=== PATIENT | female | born 1980 | race Two or more races ===

== ENCOUNTER → 2016-11-07 | Outpatient (CLI) | payer MEDICAID ==
--- NOTE | 2016-11-07 16:12 | RADIOLOGY REPORT (SQ) ---
EXAM DESCRIPTION: U/S [id number] TRNABD 1GES W/ODOP COMPLETED DATE/TIME: 11/07/2016 2:54 pm REASON FOR STUDY: ENCOUNTER FOR SUPERVISION OF DAVID RNORMAL , 1ST TRIMESTER (Z34.81) Z34.81 ENCOUNTER FOR SUPRVSN OF NORMAL , FIRST TRIM COMPARISON: none TECHNIQUE: Transabdominal static and realtime grayscale images acquired of the pelvis. Additional se lected spectral and color Doppler images recorded. All images stored on PACs. bHCG: Not available LIMITATIONS: none FINDINGS: Twin Intra-uterine gestation TYPE OF TWIN: Two gestation sacs. TWIN A: EGA: 12 weeks 4 days ZOFIA: 05/18/2017 FHR: 158 bpm SUBCHORIONIC BLEED: No SIZE OF BLEED: Not applicable. TWIN B: EGA: 12 weeks 3 days ZOFIA: 05/19/2017 FHR: 106 bpm SUBCHORIONIC BLEED: No SIZE OF BLEED: Not applicable. UTERUS: No masses. No anomalies. CERVICAL LENGTH: 3.9 cm Closed. RIGHT ADNEXA: Right ovary was not visualized. LEFT ADNEXA: Normal ovary with normal vascular flow. FREE FLUID: None. OTHER: No other significant finding. IMPRESSION: LIVING TWIN INTRAUTERINE TWIN A EGA: 12 weeks 4 days TWIN B EGA: 12 weeks 3 days Trimester of : First - 0 to 13 weeks. TECHNICAL DOCUMENTATION: JOB ID: [id number] [employer]- All Rights Reserved
== END ==
LOC: RAD 14:09
PROVIDERS: ATTEND Nurse Practitioner Women's Health
DX: Z34.81 Encounter for supervision of other normal pregnancy, first trimester (principal)
CPT/HCPCS: 76801

== ENCOUNTER 2017-04-06 02:37 | Inpatient (IN) | payer MEDICAID ==
--- NOTE | 2017-04-06 02:52 | Non Stress Test Report ---
Non Stress Test Datetime Report Generated by CPN: 04/06/2017 02:52 DEMOGRAPHIC EGA NST: 33.2 INDICATION Indication for Study: Ordered by Provider MONITORING Monitor Explained: Monitor Explained; Test Explained; Patient Verbalized Understanding Time on Monitor: 04/01/2017 21:50 Time off Monitor: 04/01/2017 23:23 NST Duration: 93 NST INTERVENTIONS NST Interventions: PO Hydration Physician Notified NST: Dr. Chandrakant BABY A: [id number] BABY A Movement : Present Contraction Frequency : 3-7 FHR Baseline : 125 Accelerations : 15X15 Decelerations : None Variability : Moderate 6-25bpm NST Review: Meets Criteria for Reactive NST NST Review and Verified By : HUSSEIN Anders Results: Reactive BABY B Movement: Present FHR Baseline: 140 Accelerations: 15X15 Decelerations: None Variability: Moderate 6-25bpm NST Review: Meets Criteria for Reactive NST NST Reviewed And Verified By: Waldo Power, RNC NST Results: Reactive NST REPORT Report Trigger: Send Report
[2017-04-06 03:34] LABS: APPEARANCE,URINE CLOUDY; BILIRUBIN,URINE NEGATIVE (NEGATIVE); GLUCOSE, URINE NEGATIVE (NEGATIVE); KETONES,URINE NEGATIVE (NEGATIVE); LEUKOCYTE ESTERASE,URINE NEGATIVE (NEGATIVE); NITRITE,URINE NEGATIVE (NEGATIVE); PROTEIN,URINE 100 mg/dL (NEGATIVE); URINE SPECIFIC GRAVITY 1.015; UROBILINOGEN,URINE NEGATIVE mg/dL (<2.0)
[2017-04-06 03:52] LABS: URINE BARBITURATES SCREEN NEGATIVE; URINE OPIATES LOW NEGATIVE; URINE PHENCYCLIDINE SCREEN NEGATIVE
[2017-04-06 04:04] LABS: URINE METHADONE SCREEN NEGATIVE
[2017-04-06] MEDS ORDERED: RINGERS SOLUTION,LACTATED 1,000 ML IV PRN (05:55)
[2017-04-06] MEDS ORDERED: RINGERS SOLUTION,LACTATED 1,000 ML IV ONE (05:57)
[2017-04-06 06:38] LABS: ABSOLUTE EOSINOPHILS # (AUTO) 0.1 10^3/uL (0.0-0.6); ABSOLUTE LYMPHOCYTES (AUTO) 1.4 10^3/uL (0.5-4.7); ABSOLUTE MONOCYTES (AUTO) 0.5 10^3/uL (0.1-1.4); ABSOLUTE NEUT (AUTO) 5.5 10^3/uL (1.7-8.2); BASOPHILS % (AUTO) 0.3 % (0-2); EOSINOPHILS % (AUTO) 1.4 % (0-6); HEMATOCRIT 27.1 % (36.0-47.0); HEMOGLOBIN 8.8 g/dL (12.0-15.5); HGB HCT DIFFERENCE -0.7; MEAN CORPUSCULAR HEMOGLOBIN 23.2 pg (27.0-33.4); MEAN CORPUSCULAR HGB CONC 32.4 g/dL (32.0-36.0); MEAN CORPUSCULAR VOLUME 72 fl (80-97); MONOCYTES % (AUTO) 6.6 % (3-13); RED BLOOD COUNT 3.78 10^6/uL (3.72-5.28); RED CELL DISTRIBUTION WIDTH 15.6 % (11.5-14.0); SEGMENTED NEUTROPHILS % (AUTO) 72.7 % (42-78); WHITE BLOOD COUNT 7.6 10^3/uL (4.0-10.5)
--- NOTE | 2017-04-06 08:57 | RADIOLOGY REPORT (SQ) ---
EXAM DESCRIPTION: U/S OB LIMITED COMPLETED DATE/TIME: 04/06/2017 8:04 am REASON FOR STUDY: twin gestation and bleeding, FHT decel of Fetus B COMPARISON: OB ultrasound 04/01/2017, 11/07/2016 TECHNIQUE: Limited transabdominal grayscale ultrasound for evaluation of specific requested obstetri chuck parameters. LIMITATIONS: None. FINDINGS: Twin chest station. Clinician requested GATITO and orientation. Twin A largest amniotic fluid pocket 2.9 cm, vertex orientation, heart rate 137 beats per minute. Twin B largest amniotic fluid pocket 2.6 cm, breech orientation, heart rate 141 beats per minute. IMPRESSION: LIMITED OBSTETRICAL ULTRASOUND WITH MEASURED PARAMETERS DELINEATED ABOVE. Trimester of : Third trimester - 28 weeks to delivery. TECHNICAL DOCUMENTATION: JOB ID: [id number] [employer]- All Rights Reserved
[2017-04-06] MEDS ORDERED: CITRIC ACID/SODIUM CITRATE ORAL SOLN 15 ML UDCUP ONE (15:58)
[2017-04-06] MEDS ORDERED: CEFAZOLIN 2 GM/D5W RTU 2 GM/50 ML RTUPB IV ONE (15:59)
[2017-04-06] MEDS ORDERED: EPHEDRINE SULFATE INJ 50 MG/1 ML AMPULE ONE (16:15)
[2017-04-06] MEDS ORDERED: FENTANYL CITRATE INJ/PF 100 MCG/2 ML AMPUL ONE (16:15)
[2017-04-06] MEDS ORDERED: OXYTOCIN 10 UNIT/ML VIAL ONE (16:15)
[2017-04-06] MEDS ORDERED: ONDANSETRON HCL INJ/PF 4 MG/2 ML SDV ONE (16:16)
[2017-04-06] MEDS ORDERED: OXYTOCIN/NORMAL SALINE 20 UNIT/1,000 ML RTUINJ ONE ×2 (16:16→17:08)
[2017-04-06] MEDS ORDERED: MIDAZOLAM 2 MG/2 ML INJ ONE (16:16)
[2017-04-06 16:17] LABS: ABSOLUTE EOSINOPHILS # (AUTO) 0.1 10^3/uL (0.0-0.6); ABSOLUTE LYMPHOCYTES (AUTO) 1.6 10^3/uL (0.5-4.7); ABSOLUTE MONOCYTES (AUTO) 0.6 10^3/uL (0.1-1.4); BASOPHILS % (AUTO) 0.3 % (0-2); EOSINOPHILS % (AUTO) 1.7 % (0-6); HEMATOCRIT 28.7 % (36.0-47.0); HEMOGLOBIN 9.1 g/dL (12.0-15.5); HGB HCT DIFFERENCE -1.4; LYMPHOCYTES % (AUTO) 19.2 % (13-45); MEAN CORPUSCULAR HGB CONC 31.7 g/dL (32.0-36.0); MEAN CORPUSCULAR VOLUME 73 fl (80-97); MONOCYTES % (AUTO) 7.2 % (3-13); RED BLOOD COUNT 3.96 10^6/uL (3.72-5.28); RED CELL DISTRIBUTION WIDTH 15.5 % (11.5-14.0); SEGMENTED NEUTROPHILS % (AUTO) 71.6 % (42-78); WHITE BLOOD COUNT 8.4 10^3/uL (4.0-10.5)
[2017-04-06] MEDS ORDERED: PROMETHAZINE HCL INJ 25 MG/1 ML VIAL IV PRN (17:18)
[2017-04-06] MEDS ORDERED: FENTANYL CITRATE INJ/PF 100 MCG/2 ML AMPUL IV PRN ×3 (17:18)
[2017-04-06] MEDS ORDERED: MEPERIDINE HCL/PF INJ 25 MG/1 ML DISP.SYRIN IV PRN (17:18)
[2017-04-06] MEDS ORDERED: MORPHINE SULFATE 10 MG/ML INJ IV PRN (17:18)
[2017-04-06] MEDS ORDERED: NALBUPHINE HCL INJ 10 MG/1 ML AMPULE IM ONE (17:19)
[2017-04-06] MEDS ORDERED: NALBUPHINE HCL INJ 10 MG/1 ML AMPULE ONE ×2 (17:19→17:46)
[2017-04-06] MEDS ORDERED: NALBUPHINE HCL INJ 10 MG/1 ML AMPULE IM PRN (17:35)
[2017-04-06] MEDS ORDERED: OXYTOCIN/NORMAL SALINE 20 UNIT/1,000 ML RTUINJ INJ PRN (18:31)
[2017-04-06] MEDS ORDERED: HYDROMORPHONE HCL INJ/PF 2 MG/ML AMPULE ONE (18:57)
[2017-04-06] MEDS: HYDROMORPHONE HCL INJ/PF 2 MG/ML AMPULE IV PRN ×2 (18:59→23:21)
[2017-04-06] MEDS ORDERED: DIPH/PERTUSS(ACELL)/TETANUS VAC/PF 0.5 ML SYR (>=10YO) IM PRN (19:00)
[2017-04-06] MEDS ORDERED: ACETAMINOPHEN 325 MG TABLET PO PRN (19:00)
[2017-04-06] MEDS ORDERED: PROMETHAZINE HCL INJ 25 MG/1 ML VIAL IM PRN (19:00)
[2017-04-06] MEDS ORDERED: OXYCODONE-ACETAMINOPHEN 5-325 MG TABLET PO PRN (19:00)
[2017-04-06] MEDS ORDERED: MEASLES,MUMPS&RUBELLA VACC/PF 0.5 ML VIAL SUBCUT PRN (19:00)
--- NOTE | 2017-04-06 19:22 | OPERATIVE REPORT E ---
Operative Report NAME: THIERRY GORMAN : 1980 AGE: 36Y DATE OF SURGERY: 04/06/2017 ROOM: LR200 PREOPERATIVE DIAGNOSIS: 1. A 34-WEEK TWIN INTRAUTERINE . 2. VAGINAL BLEEDING, LABOR VERSES PLACENTAL ABRUPTION. 3. HISTORY OF SECTION X3. POSTOPERATIVE DIAGNOSIS: 1. A 34-WEEK TWIN INTRAUTERINE . 2. VAGINAL BLEEDING, LABOR VERSES PLACENTAL ABRUPTION. 3. HISTORY OF SECTION X3. OPERATION: 1. Repeat low transverse section. 2. Lysis of adhesions. SURGEON: Dhiraj Covington D.O. REGIONAL EXTENSION SERVICE SPECIALIST: Dr. Lyn ANESTHESIA: Spinal COMPLICATIONS: None. ESTIMATED BLOOD LOSS: 800 mL. PATHOLOGY: Placenta. FINDINGS: 1. Viable twin female infants, baby A born at 17:01 on 04/06/2017, baby B born 17:04 on 04/06/2017. 2. Baby A delivered in cephalic position, baby B breech converted internally to cephalic for delivery. 3. Baby B placenta with approximately 15 to 20 percent placental abruption visible. 4. Severe adhesive disease. PROCEDURE: The patient was taken to the operating room where spinal anesthesia was administered. Once this was done, she was placed in the dorsal supine position with a leftward tilt upon the operating table. She was then prepped and draped in the normal sterile fashion. A scalpel was then used to make a Pfannenstiel skin incision. The skin incision was carried down through subcutaneous tissues to the layer of the fascia. The fascia was incised in the midline. The fascial incision was then extended bilaterally using the Bovie cautery. The superior fascial edge was grasped with Carol clamps, elevated and the rectus muscles dissected off sharply and bluntly. Attention was then turned to the inferior fascial edge which was grasped with Carol clamps, elevated, and the rectus muscles dissected off sharply. There was noted that the rectus muscles were then densely adhered to the anterior wall of the uterus with also some of the anterior wall of the uterus adhered to the anterior peritoneum. Approximately 25 minutes of lysis of adhesions occurred to create a window big enough to make the hysterotomy incision in. A scalpel was then used to make a low transverse hysterotomy incision. A was in the cephalic position and delivered through the incision without difficulty and atraumatically. The nose and mouth were suctioned. The cord was clamped and cut and was handed off to the awaiting competitive shopper. Baby B was found to be in the breech presentation. Delivery of the breech presentation was unsuccessful and the baby was converted to a cephalic position using internal maneuvers and delivered without difficulty cephalically. The nose and mouth were suctioned. Cord was clamped and cut and the was handed off to the waiting competitive shopper. Cord blood was obtained on the placenta. The placenta was then manually removed from the uterus. Following this a dense adhesion from the anterior wall of the uterus to the peritoneum was transected using Bovie cautery with good hemostasis. At this point in time that allowed the uterus to be exteriorized. The uterus was then exteriorized and cleared of all clot and debris. Hysteroscopy incision was then reapproximated using 2 layers of 1-0 Vicryl in a running locking fashion. There were several areas of the uterus that were oversewn where the adhesions were taken down. These gained good hemostasis. The uterus was then returned to the abdomen. The bilateral pericolic gutters were then irrigated and cleared of all clots and debris. Again, hysterotomy incision was reinspected and found to have good hemostasis. Surgicel was then placed over the hysterotomy incision and the areas on the uterus that were oversewn. The rectus muscles in the peritoneum were then reapproximated using 1-0 Vicryl interrupted sutures. The fascia was then closed using 1-0 Vicryl in a running nonlocking fashion. The subcutaneous space was made hemostatic using Bovie cautery. The skin was then closed with absorbable mary, covered with an OpSite, and then with a pressure dressing. At this point in time the procedure was terminated. All sponge, lap, needle counts were correct x2. Patient tolerated the procedure well. Patient was taken to the Recovery Room in stable condition. DICTATING PHYSICIAN: Dhiraj Covington DO [id number] PHY#: [id number] ID: [id number] JOB#: [id number] ACCT: [id number] cc:Dhiraj Covington D.O. >
--- NOTE | 2017-04-06 19:50 | Admission Physical ---
Datetime Report Generated by CPN: 04/06/2017 19:50 CURRENT ADMISSION Chief Complaint: Vaginal Bleeding Indication for Induction: Not Applicable Indication for Induction: , Intrauterine Admit Impression- Other: Twin Gestation: di/di Admit Plan: Observation/Evaluation ALLERGIES Medication Allergies: No Medication Allergies: No Known Allergies (04/06/2017) Medication Allergies: No Known Allergies (11/21/2014) Latex: No Latex Allergies Food Allergies: none Environmental Allergies: none OBSTETRICAL HISTORY EDC: 05/18/2017 00:00 : 4 Para: 3 Term: 3 : 0 SAB: 0 IAB: 0 Ectopic: 0 Livin Cesareans: 3 VBACs: 0 Multiple Births: 0 Gestational Diabetes: No Rh Sensitization: No Incompetent Cervix: No VAUGHN: No Infertility: No ART Treatment: No Uterine Anomaly: No IUGR: No Hx Previous C/S: No Macrosomia: No Hx Loss/Stillborn: No PIH: No Hx : No Placenta Previa/Abruption: No Depression/PP Depression: No PTL/PROM: No Post Hemorrhage: No Current Procedures: Ultrasound; NST Obstetrical History Comments: G1- 1997 G2- 2000 , 38 weeks G3- 2002 G4- current, twins SEE RECORDS Alcohol: No Marijuana : No Cocaine: No Other Illicit Drugs: No Cigarettes: Never Smoker. 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 Heart Disease: No Hosp/Surgery: No Autoimmune Disorder: No Anesthetic Complications: No Kidney Disease: No Abnormal Pap Smear: No Neuro/Epilepsy: No Psychiatric Disorders: No Other Medical Diseases: No Hepatitis/Liver Disease: No Significant Family History: No Varicosities/Phlebitis: No Trauma/Violence : No Thyroid Dysfunction: No Medical History Comments: Gastric bypass 2006, DJD INFECTIOUS HISTORY Gonorrhea: No Genital Herpes: No Chlamydia: No Tuberculosis: No Syphilis: No Hepatitis: No HIV/AIDS Exposure: No Rash or Viral Illness: No HPV: No PHYSICAL EXAM General: Normal HEENT: Normal Neurologic: Normal Thyroid: Normal Heart: Normal Lungs: Normal Breast: Normal Back: Normal Abdomen: Normal Genitourinary Exam: Normal Extremities: Normal DTRs: Normal Pelvic Type: Adequate Vital Signs: Reviewed VAGINAL EXAM Dilatation: 0 Effacement: 0 Station: -3 MEMBRANES Pooling: Negative Ferning Results: Negative FETUS A EGA: 34.0 Monitoring: External US FHR- Baseline: 135 Variability: Moderate 6-25bpm Accelerations: 15X15 Decelerations: Prolonged FHR Category: Category II FHR Comments: one decel for 1.5 min Estimated Weight (gm): 2500 Presentation: Vertex Admit Comment: moderate bleeding. no signs of ROM with negative Fern. Will get GATITO and sono for presentation. Place on OBS status due to twin gestation risks and soft signs of labor. FETUS B Monitoring: External US Monitoring: External US Monitoring: External US Monitoring: External US Monitoring: External US Monitoring: External US Monitoring: External US Monitoring: External US Monitoring: External US Monitoring: External US Monitoring: External US Monitoring: External US Monitoring: External US Monitoring: External US Monitoring: External US Monitoring: External US Monitoring: External US Monitoring: External US Variability: Moderate 6-25bpm Accelerations: 10X10 Decelerations: None FHR Category: Category I Estimated Weight (gm): 2500 Presentation: Breech PLANS FOR LABOR AND DELIVERY Labor and Delivery: None Pain Management: None Feeding Preference: Both Benefit of Breast Feed Discussed: Yes Circumcision: N/A INFORMED CONSENT Signature: with User ID: [email or web address]
[2017-04-06] MEDS: OXYCODONE-ACETAMINOPHEN 5-325 MG TABLET PO PRN (21:19)
[2017-04-06] MEDS: IBUPROFEN 800 MG TABLET PO SCH (23:00)
[2017-04-07] MEDS: OXYCODONE-ACETAMINOPHEN 5-325 MG TABLET PO PRN ×5 (02:19→21:07)
[2017-04-07] MEDS: IBUPROFEN 800 MG TABLET PO SCH ×4 (05:01→23:50)
[2017-04-07] MEDS: RINGERS SOLUTION,LACTATED 1,000 ML IV SCH ×2 (05:22→05:36)
[2017-04-07] MEDS ORDERED: RINGERS SOLUTION,LACTATED 500 ML IV ONE (05:30)
[2017-04-07 06:04] LABS: HEMOGLOBIN 8.2 g/dL (12.0-15.5); HGB HCT DIFFERENCE -1.4; MEAN CORPUSCULAR HEMOGLOBIN 22.9 pg (27.0-33.4); MEAN CORPUSCULAR HGB CONC 31.5 g/dL (32.0-36.0); MEAN CORPUSCULAR VOLUME 73 fl (80-97); RED BLOOD COUNT 3.59 10^6/uL (3.72-5.28); RED CELL DISTRIBUTION WIDTH 15.5 % (11.5-14.0); WHITE BLOOD COUNT 12.8 10^3/uL (4.0-10.5)
[2017-04-07] MEDS: DOCUSATE SODIUM 100 MG CAPSULE PO SCH ×2 (10:52→17:46)
[2017-04-07] MEDS: PRENATAL VITAMIN W-O CA NO5/FE FUMARATE/FA CAPSULE PO SCH (10:52)
[2017-04-07] MEDS: SIMETHICONE 80 MG TAB.CHEW PO PRN (11:59)
[2017-04-07] MEDS: HYDROMORPHONE HCL INJ/PF 2 MG/ML AMPULE IV PRN ×2 (12:00→18:16)
--- NOTE | 2017-04-07 12:37 | PDOC PROGRESS REPORT ---
Subjective-OB Subjective: Post Delivery Day:1 36 year old s/p Repeat ppd1. Ambulating and voiding without difficulty. Just had percocet for pain but not working yet. Reports she might have been overdoing with the walking. Denies any needs at this time. Babies in NICU and stable at this time. Physical Exam (OB) Vital Signs: Temp Pulse Resp BP Pulse Ox 97.8 F 58 L 20 119/80 99 04/07/17 07:48 04/07/17 07:48 04/07/17 07:48 04/07/17 07:48 04/07/17 07:48 Intake & Output 04/06/17 04/07/17 04/08/17 06:59 06:59 06:59 Intake Total 600 Output Total 750 Balance -150 Weight 133.05 kg - General General Appearance: Appears well In distress: None - PIH/Pre-Eclampsia Headache: Absent Epigastric Pain: No Visual Changes: No - Dressing Removed: Yes Incision: Dressing, Well Approximated Closure Type: Sutures - Lochia Lochia Amount: Small 10-25 ml Lochia Color: Rubra/Red - Abdomen Description: Soft, Round Hernia Present: No Fundal Description: Firm, Midline Fundal Height: u/u - u/2 - Respiratory Respiratory Status: No respiratory distress - Extremities Upper extremity: Normal inspection Lower extremities: Normal inspection - Neurological Cognition: Normal Orientation: AAOx4 - Psychological Associated symptoms: Normal affect, Normal mood Objective-Diagnostic Laboratory: 04/07/17 05:42 04/06/17 04/07/17 16:06 05:42 WBC 8.4 12.8 H RBC 3.96 3.59 L Hgb 9.1 L 8.2 L Hct 28.7 L 26.0 L MCV 73 L 73 L MCH 23.0 L 22.9 L MCHC 31.7 L 31.5 L RDW 15.5 H 15.5 H Plt Count 160 129 L Seg Neutrophils % 71.6 Lymphocytes % 19.2 Monocytes % 7.2 Eosinophils % 1.7 Basophils % 0.3 Absolute Neutrophils 6.0 Absolute Lymphocytes 1.6 Absolute Monocytes 0.6 Absolute Eosinophils 0.1 Absolute Basophils 0.0 Assessment and Plan(PN) - Assessment and Plan (1) Status post repeat low transverse section Is this a current diagnosis for this admission?: Yes Plan: routine pp care (2) Anemia complicating , third trimester Is this a current diagnosis for this admission?: Yes Plan: continue FeSO4 bid, increase dietary iron (3) Placental abruption Qualifiers: Trimester: third trimester Qualified Code(s): O45.93 - Premature separation of placenta, unspecified, third trimester Is this a current diagnosis for this admission?: Yes Plan: delivered (4) delivery Is this a current diagnosis for this admission?: Yes Plan: babies in NICU. Routine maternal pp care. (5) Twin Qualifiers: Multiple gestation type: dichorionic and diamniotic Trimester: third trimester Qualified Code(s): O30.043 - Twin , dichorionic/diamniotic , third trimester Is this a current diagnosis for this admission?: Yes Plan: delivered - Time Spent with Patient Time with patient: 15-25 minutes - Disposition Anticipated Discharge: Home Within: within 24 hours
[2017-04-08] MEDS: OXYCODONE-ACETAMINOPHEN 5-325 MG TABLET PO PRN ×6 (01:12→23:08)
[2017-04-08] MEDS: SIMETHICONE 80 MG TAB.CHEW PO PRN ×3 (02:20→17:38)
[2017-04-08] MEDS: IBUPROFEN 800 MG TABLET PO SCH ×4 (05:07→23:04)
[2017-04-08] MEDS: DOCUSATE SODIUM 100 MG CAPSULE PO SCH ×2 (09:19→17:37)
[2017-04-08] MEDS: PRENATAL VITAMIN W-O CA NO5/FE FUMARATE/FA CAPSULE PO SCH (09:19)
[2017-04-08] MEDS ORDERED: BISACODYL 10 MG SUPP.RECT PR ONE (10:40)
--- NOTE | 2017-04-08 10:43 | PDOC PROGRESS REPORT ---
Subjective-OB Subjective: Post Delivery Day: 36 year old. Denies any needs at this time Pt sitting in bed, feels ok but feels bloated and uncomfortable, Dr. Lyn came in yesterday and checked her, feels gas but not passing any, no BM, voiding , babies in NICU, bottle feeding, scant bleeding Physical Exam (OB) Vital Signs: Temp Pulse Resp BP Pulse Ox 98.0 F 61 18 123/73 98 04/08/17 08:41 04/08/17 08:41 04/08/17 08:00 04/08/17 08:41 04/08/17 08:41 Intake & Output 04/07/17 04/08/17 04/09/17 06:59 06:59 06:59 Intake Total 600 640 Output Total 750 1000 Balance -150 -360 Weight 133.05 kg - PIH/Pre-Eclampsia Headache: Absent Epigastric Pain: No Visual Changes: No - Dressing Removed: No Incision: Dressing Closure Type: Sutures - Lochia Lochia Amount: Scant < 10 ml Lochia Color: Rubra/Red - Abdomen Description: Firm, Round, Distended Hernia Present: No Fundal Description: Firm, Midline Fundal Height: u/u - u/2 Objective-Diagnostic Laboratory: 04/07/17 05:42 Assessment and Plan(PN) - Assessment and Plan (1) Status post repeat low transverse section Is this a current diagnosis for this admission?: Yes (2) Anemia complicating , third trimester Is this a current diagnosis for this admission?: Yes (3) Placental abruption Qualifiers: Trimester: third trimester Qualified Code(s): O45.93 - Premature separation of placenta, unspecified, third trimester Is this a current diagnosis for this admission?: Yes (4) delivery Is this a current diagnosis for this admission?: Yes (5) Twin Qualifiers: Multiple gestation type: dichorionic and diamniotic Trimester: third trimester Qualified Code(s): O30.043 - Twin , dichorionic/diamniotic , third trimester Is this a current diagnosis for this admission?: Yes - Time Spent with Patient Time with patient: Less than 15 minutes Medications reviewed and adjusted accordingly: Yes - Disposition Anticipated Discharge: Home Within: within 24 hours - will give Dulcolax supp to help with passing gas
[2017-04-09] MEDS: OXYCODONE-ACETAMINOPHEN 5-325 MG TABLET PO PRN ×2 (04:11→09:25)
[2017-04-09] MEDS: SIMETHICONE 80 MG TAB.CHEW PO PRN (04:12)
[2017-04-09] MEDS: IBUPROFEN 800 MG TABLET PO SCH (05:03)
[2017-04-09 08:36] VITALS: BP 124/68
[2017-04-09] MEDS: DOCUSATE SODIUM 100 MG CAPSULE PO SCH (09:15)
[2017-04-09] MEDS: PRENATAL VITAMIN W-O CA NO5/FE FUMARATE/FA CAPSULE PO SCH (09:15)
--- NOTE | 2017-04-09 10:51 | PDOC DISCHARGE SUMMARY ---
Final Diagnosis Discharge Date: 04/09/17 - Final Diagnosis (1) Placental abruption Is this a current diagnosis for this admission?: Yes (2) Status post repeat low transverse section Is this a current diagnosis for this admission?: Yes (3) Twin Is this a current diagnosis for this admission?: Yes Discharge Data - Discharge Medication Home Medications: Ferrous Sulfate [Iron] 325 mg PO DAILY 04/06/17 Prenat 115/Iron Fum/Folic/Dss [ 19 Tablet] 1 each PO DAILY 04/06/17 Reason(s) for Admission: Ceasarean Section-Repeat, Obstetric Complications, Advanced Maternal Age Procedures: NST, Management of Obstetric Complications Intrapartum Procedure(s): : Low Cervical, Transverse - Diagnosis Test Laboratory: Temp Pulse Resp BP Pulse Ox 98.2 F 60 20 124/68 98 04/09/17 08:00 04/09/17 08:00 04/09/17 08:00 04/09/17 08:00 04/09/17 08:00 04/06/17 04/06/17 04/06/17 02:48 06:25 16:06 RBC 3.78 3.96 Hgb 8.8 L 9.1 L Hct 27.1 L 28.7 L Urine Opiates Screen NEGATIVE 04/07/17 05:42 RBC 3.59 L Hgb 8.2 L Hct 26.0 L Urine Opiates Screen - Discharge information/Instructions Discharge Activity: Activity As Tolerated, Balance Activity w/Rest, No Lifting Over 10 Pounds, No Lifting/Push/Pulling, Pelvic Rest, Slowly Increase Activity, No tub bath Discharge Diet: Regular Disposition: HOME, SELF-CARE Follow up with: [facility] in: 5, Days
--- NOTE | 2017-04-10 12:50 | Delivery Summary ---
Del Sum A-C Datetime Report Generated by CPN: 04/10/2017 12:50 DELIVERY PERSONNEL DELIVERY PERSONNEL: [id number] Delivery Doctor:: Dhiraj Covington DO Anesthesiologist:: Abbe Downing MD TON CONTAINER FILLER:: Cayetano Salazar CRNA Labor and Delivery Nurse:: Dana Vargas RNevent coordinator Nurse:: HUSSEIN Reece Nurse Practitioner:: ART Back Nursery Nurse:: Carolynn Huff RN Nursery Nurse:: Alejandra Levy RN Shot Peening Operator/REINFORCING IRON WORKER HELPER: Viktoriya Shahid CST Shot Peening Operator/REINFORCING IRON WORKER HELPER: Diamond Nettles PHOTO LAB TECHNICIAN MATERNAL INFORMATION Delivery Anesthesia: Spinal Medications After Delivery: Pitocin Bolus-Please Comment; Pitocin Drip 20 Units/1000ml NSS Estimated Blood Loss (ml): 800 Maternal Complications: Abruptio Placenta LABOR SUMMARY EDC: 05/18/2017 00:00 No. Babies in Womb: 2 Attempted: No Labor Anesthesia: None LABOR INFORMATION Oxytocin: N/A Antibiotics # of Doses: 1 Antibiotics Time of Last Dose: 1607 Name of Antibiotic Given: Kefzol 2gm Steroids Given: None MEMBRANES Membranes Rupture Method: Artificial Rupture of Membranes: 04/06/2017 17:00 Length of Rupture (hr): 0.02 Amniotic Fluid Color: Clear Amniotic Fluid Amount: Small STAGES OF LABOR Stage 3 hr: 0 Stage 3 min: 4 VAGINAL DELIVERY Episiotomy: None Laceration #1: None Laceration Extension #1: N/A CSECTION DELIVERY Primary Indication: > 2 Previous C-Sections Secondary Indication: Multiple Gestation CSection Incidence: Repeat Labor: No Labor Elective: Nonelective CSection Incision: Lower Uterine Transverse BABY A INFORMATION Infant Delivery Date/Time: 04/06/2017 17:01 Method of Delivery: Born in Route : No : N/A Forceps: N/A Vacuum Extraction: N/A Shoulder Dystocia : No PRESENTATION/POSITION BABY A Presentation: Cephalic Cephalic Presentation: Vertex PLACENTA INFORMATION BABY A Placenta Delivery Time : 04/06/2017 17:05 Placenta Method of Delivery: Manual Removal Placenta Status: Delivered SCORES BABY A Heart Rate 1 min: >100 bpm Resp Effort 1 min: Good Cry Reflex Irritability 1 min: Cough or Sneeze or Pulls Away Muscle Tone 1 min: Some Flexion of Extremities Color 1 min: Body [place], Extremities Blue Resuscitation Effort 1 min: Tactile Stimulation SCORE 1 MIN: 8 Heart Rate 5 min: >100 bpm Resp Effort 5 min: Good Cry Reflex Irritability 5 min: Cough or Sneeze or Pulls Away Muscle Tone 5 min: Active Motion Color 5 min: Body [place], Extremities Blue Resuscitation Effort 5 min: Tactile Stimulation SCORE 5 MIN: 9 INFORMATION BABY A Gestational Age at Delivery: 34.0 Gestational Status: Late - 34- 36.6 Weeks Outcome : Liveborn Infant Condition : Stable Sex: Female IDENTIFICATION BABY A Infant Verification Date/Time: 04/06/2017 17:02 ID Band Number: [id number] Mother's Name Verified: Yes Infant RN Verifying : K KATJA RNC/B VARGAS RN WEIGHT/LENGTH BABY A Infant Birthweight (gm): 1924 Infant Weight (lb): 4 Weight (oz): 4 Infant Length (in): 16.00 Length (cm): 40.64 CORD INFORMATION BABY A No. Cord Vessels: 3 Nuchal Cord : N/A Cord Blood Taken: No-Annotate Banking/Donate Info: Unable to obtain Suction: Mouth; Nose ASSESSMENT BABY A Complications: None Infant Respirations: Appears Normal Skin to Skin: No Guidance Counselor/ALS Called : No Infant Care By: K MENDY RN Transferred To: NICU BABY B INFORMATION Delivery Date/Time: 04/06/2017 17:04 Method of Delivery : Born in Route : No : N/A Forceps : N/A Vacuum Extraction: N/A Shoulder Dystocia : No SHOULDER DYSTOCIA BABY B Infant Delivery Date/Time: 04/06/2017 17:04 PRESENTATION/POSITION BABY B Presentation : Cephalic Cephalic Position : Vertex ROM/PLACENTA INFO BABY B Rupture of Membranes: 04/06/2017 17:01 Length of Rupture (hr): 0.05 Placenta Delivery Time : 04/06/2017 17:05 Placenta Method of Delivery: Manual Removal Placental Status : Delivered INFANT INFORMATION BABY B Gestational Age at Delivery: 34.0 Gestational Status : Late - 34- 36.6 Weeks Infant Outcome : Liveborn Infant Condition : Stable Infant Sex : Female IDENTIFICATION BABY B Verification Date/Time: 04/06/2017 17:05 ID Band Number : [id number] Mother's Name Verified: Yes Infant RN Verifying : B VARGAS RN/K KATJA RNC WEIGHT/LENGTH BABY B Birthweight (gm): 1676 Infant Weight (lb) : 3 Infant Weight (oz): 11 Length (in): 17.00 Length (cm): 43.18 CORD INFORMATION BABY B No. Cord Vessels : 3 Nuchal Cord : N/A Cord Blood Taken : No-Annotate Banking/Donate Info : UNABLE TO OBTAIN Infant Suction : Mouth; Nose ASSESSMENT BABY B Infant Complications : None Physical Findings at Delivery: Within Normal Limits Infant Respirations : Appears Normal Guidance Counselor/ALS Called : No Infant Care By : Srikanth HUFF RN Transfer To: NICU
== END 2017-04-09 15:00 | disposition home or self-care (01) | DRG 765 ==
LOC: LC 02:37 → UNDOADMOB 05:54 → LR 05:54 → UNDOADMOB 06:04 → LR 06:04 → INTOOBSV 16:07 → OBSVTOIN 16:07 → 2S 19:48 → LR 19:48
PROVIDERS: ADMIT Obstetrics & Gynecology; ATTEND Obstetrics & Gynecology
PROC: 10D00Z1 Extraction of Products of Conception, Low, Open Approach (ICD-10-PCS; principal; 2017-04-06)
PROC: 0UN90ZZ Release Uterus, Open Approach (ICD-10-PCS; 2017-04-06)
PROC: 4A1HXCZ Monitoring of Products of Conception, Cardiac Rate, External Approach (ICD-10-PCS; 2017-04-06)
DX: O45.93 Premature separation of placenta, unspecified, third trimester (principal); O60.14X1 Preterm labor third trimester with preterm delivery third trimester, fetus 1; O60.14X2 Preterm labor third trimester with preterm delivery third trimester, fetus 2; O34.211 Maternal care for low transverse scar from previous cesarean delivery; N73.6 Female pelvic peritoneal adhesions (postinfective); O99.02 Anemia complicating childbirth; D64.9 Anemia, unspecified; O30.043 Twin pregnancy, dichorionic/diamniotic, third trimester; O99.844 Bariatric surgery status complicating childbirth; Z3A.34 34 weeks gestation of pregnancy; Z37.2 Twins, both liveborn
CPT/HCPCS: 1961; 36415; 76815; 80307; 81001; 85025; 85027; 86592; 86850; 86900; 86901; 88307; 94760; 94799; G0378; J0690; J1170; J2250; J2300; J2405; J2550; J2590; J3010; J3490; J7120; Q0114

== ENCOUNTER → 2017-07-16 | Outpatient (CLI) | payer MEDICAID ==
--- NOTE | 2017-07-16 17:01 | RADIOLOGY REPORT (SQ) ---
EXAM DESCRIPTION: ANKLE RIGHT COMPLETE COMPLETED DATE/TIME: 07/16/2017 4:43 pm REASON FOR STUDY: ACUTE RT ANKLE PAIN M25.571 PAIN IN RIGHT ANKLE AND JOINTS OF RIGHT FOOT COMPARISON: None. NUMBER OF VIEWS: Three views. TECHNIQUE: AP, lateral, and oblique radiographic images acquired of the right ankle. LIMITATIONS: None. FINDINGS: MINERALIZATION: Normal. BONES: No acute fracture or dislocation. No worrisome bone lesions. JOINTS: No effusions. SOFT TISSUES: No soft tissue swelling. No foreign body. OTHER: No other significant finding. IMPRESSION: NEGATIVE STUDY OF THE RIGHT ANKLE. NO RADIOGRAPHIC EVIDENCE OF ACUTE INJURY. TECHNICAL DOCUMENTATION: JOB ID: [id number] [employer]- All Rights Reserved
== END ==
LOC: RAD 16:28
PROVIDERS: ATTEND Physician Assistant
DX: M25.571 Pain in right ankle and joints of right foot (principal)

== ENCOUNTER 2017-09-08 09:44 | Day surgery (SDC) | payer MEDICAID ==
[2017-09-07 11:55] LABS: HEMATOCRIT 31.5 % (36.0-47.0); HEMOGLOBIN 9.7 g/dL (12.0-15.5); MEAN CORPUSCULAR HEMOGLOBIN 20.5 pg (27.0-33.4); MEAN CORPUSCULAR HGB CONC 30.8 g/dL (32.0-36.0); MEAN CORPUSCULAR VOLUME 67 fl (80-97); PLATELET COUNT 244 10^3/uL (150-450); RED BLOOD COUNT 4.72 10^6/uL (3.72-5.28); RED CELL DISTRIBUTION WIDTH 18.9 % (11.5-14.0); WHITE BLOOD COUNT 5.8 10^3/uL (4.0-10.5)
[2017-09-07 12:00] LABS: APPEARANCE,URINE SLIGHTLY-CLOUDY; BILIRUBIN,URINE NEGATIVE (NEGATIVE); COLOR,URINE YELLOW; GLUCOSE, URINE NEGATIVE (NEGATIVE); KETONES,URINE NEGATIVE (NEGATIVE); LEUKOCYTE ESTERASE,URINE NEGATIVE (NEGATIVE); NITRITE,URINE NEGATIVE (NEGATIVE); PROTEIN,URINE NEGATIVE (NEGATIVE); URINE SPECIFIC GRAVITY 1.024
[~2017-09-08 09:44] MED LIST: FENTANYL CITRATE INJ/PF 100 MCG/2 ML AMPUL ONE; LACTATED RINGERS 1000 ML IV PRN; LIDOCAINE 0.5% INJ-PF (5 MG/ML) 50 ML SDV SUBCUT PRN; MIDAZOLAM 2 MG/2 ML INJ ONE; PROPOFOL INJ 200 MG/20 ML VIAL IV ONE
[2017-09-08] MEDS ORDERED: GLYCOPYRROLATE INJ 0.4 MG/2 ML VIAL ONE (10:58)
[2017-09-08] MEDS ORDERED: ONDANSETRON HCL INJ/PF 4 MG/2 ML SDV ONE (10:58)
[2017-09-08] MEDS ORDERED: LIDOCAINE 2% INJ-PF (20 MG/ML) 2 ML AMPUL ONE (10:58)
[2017-09-08] MEDS ORDERED: DEXAMETHASONE SOD PHOSPHATE INJ 4 MG/1 ML VIAL ONE (10:58)
[2017-09-08] MEDS ORDERED: SUCCINYLCHOLINE CHLORIDE INJ 200 MG/10 ML VIAL ONE (10:58)
[2017-09-08] MEDS: FENTANYL CITRATE INJ/PF 100 MCG/2 ML AMPUL ONE ×2 (12:40→12:45)
[2017-09-08] MEDS ORDERED: FENTANYL CITRATE INJ/PF 100 MCG/2 ML AMPUL IV PRN ×3 (12:43)
[2017-09-08] MEDS ORDERED: PROMETHAZINE HCL INJ 25 MG/1 ML VIAL IV PRN (12:43)
[2017-09-08] MEDS ORDERED: DIPHENHYDRAMINE HCL 50 MG/ML VIAL IV PRN (12:43)
[2017-09-08] MEDS ORDERED: MEPERIDINE HCL/PF INJ 25 MG/1 ML DISP.SYRIN IV PRN (12:43)
[2017-09-08] MEDS ORDERED: KETOROLAC TROMETHAMINE INJ/PF 30 MG/1 ML SDV ONE (12:46)
[2017-09-08] MEDS ORDERED: ACETAMINOPHEN 100 ML IV ONE (12:48)
--- NOTE | 2017-09-08 12:54 | OPERATIVE REPORT E ---
Operative Report NAME: THIERRY GORMAN : 1980 AGE: 36Y DATE OF SURGERY: ROOM: TIME: 1230 hours PREOPERATIVE DIAGNOSIS: PATIENT DESIRES TUBAL LIGATION. POSTOPERATIVE DIAGNOSIS: 2. PATIENT DESIRES TUBAL LIGATION. 2. ABDOMINAL ADHESIONS OF THE UTERUS TO THE ANTERIOR ABDOMINAL WALL. OPERATION: Laparoscopic Filshie clip placement on both tubes. SURGEON: DAVID BRADLEY M.D. REPACKER: None. FINDINGS: Showed normal tubes and ovaries. The uterus is adhered to the anterior abdominal wall. COMPLICATIONS: There are no complications. BLOOD LOSS: Minimal. ANESTHESIA: General. PROCEDURE IN DETAIL: Patient was taken to the OR and placed in a supine position. General anesthesia was induced. She was placed in dorsal lithotomy position using Joseph stirrups. Her abdomen, perineum and vagina were prepared and draped in a sterile fashion. Her bladder was drained with a red rubber catheter and a sponge stick was placed in the vagina for manipulation of the uterus. An incision was made at the umbilicus. The natural umbilical defect was identified and dilated with Es clamp. This allowed a blunt port to be placed. Laparoscopy confirmed appropriate placement. The abdomen was insufflated with CO2 gas. The view of the abdomen was good. The uterus was adhered to the anterior abdominal wall. Fallopian tubes and ovaries could be seen. Each tube was identified by its fimbriated end and then Filshie clip placed at the mid isthmic portion. This was done bilaterally. At the end of the case the gas was allowed to escape. The port and scope were removed in unison. The fascia at the umbilicus was closed with a 2-0 Vicryl stitch and skin closed with a 4-0 undyed Vicryl stitch. Patient was extubated in the OR and taken to the recovery room in stable condition. DICTATING PHYSICIAN: DAVID BRADLEY M.D. [id number] PHY#: [id number] ID: [id number] JOB#: [id number] ACCT: [id number] cc:DAVID BRADLEY M.D. >
[2017-09-08] MEDS ORDERED: KETOROLAC TROMETHAMINE INJ/PF 30 MG/1 ML SDV IV PRN (13:04)
[2017-09-08] MEDS ORDERED: OXYCODONE-ACETAMINOPHEN 5-325 MG TABLET PO PRN ×2 (13:04→13:05)
[2017-09-08] MEDS ORDERED: IBUPROFEN 800 MG TABLET PO PRN (13:04)
[2017-09-08 14:36] VITALS: BP 134/85
== END 2017-09-08 14:50 | disposition home or self-care (01) ==
LOC: OROUT 09:44
PROVIDERS: ATTEND Obstetrics & Gynecology
PROC: 0UL74CZ Occlusion of Bilateral Fallopian Tubes with Extraluminal Device, Percutaneous Endoscopic Approach (ICD-10-PCS; principal; 2017-09-08 11:45)
DX: Z30.2 Encounter for sterilization (principal); F17.210 Nicotine dependence, cigarettes, uncomplicated; D64.9 Anemia, unspecified; N73.6 Female pelvic peritoneal adhesions (postinfective)
CPT/HCPCS: 36415; 85027; 81005; 81025; 58671; J2250; J1100; J3010; J3490 ×2; J1885; J0330; J2405; J2704; J0131; 851

== ENCOUNTER 2018-01-05 13:06 | Outpatient (CLI) | payer MEDICAID ==
[~2018-01-05 13:06] MED LIST changes: -FENTANYL CITRATE INJ/PF 100 MCG/2 ML AMPUL ONE; +FERRIC CARBOXYMALTOSE 750 MG in NORMAL SALINE 250 ML IV PRN; -LACTATED RINGERS 1000 ML IV PRN; -LIDOCAINE 0.5% INJ-PF (5 MG/ML) 50 ML SDV SUBCUT PRN; -MIDAZOLAM 2 MG/2 ML INJ ONE; +NORMAL SALINE 250 ML IV PRN; -PROPOFOL INJ 200 MG/20 ML VIAL IV ONE
[2018-01-05 14:33] VITALS: BP 121/76
== END 2018-01-05 14:45 | disposition home or self-care (01) ==
LOC: II 13:06 → 5TH 13:09 → II 14:45
PROVIDERS: ATTEND Internal Medicine Hematology & Oncology
PROC: 3E033GC Introduction of Other Therapeutic Substance into Peripheral Vein, Percutaneous Approach (ICD-10-PCS; principal; 2018-01-05)
DX: D50.9 Iron deficiency anemia, unspecified (principal); K90.9 Intestinal malabsorption, unspecified
CPT/HCPCS: 96365; J7050; J1439

== ENCOUNTER 2018-01-12 10:59 | Outpatient (CLI) | payer MEDICAID ==
[2018-01-12 11:39] VITALS: BP 117/75
== END 2018-01-12 12:33 | disposition home or self-care (01) ==
LOC: II 10:59 → 5TH 11:01 → II 12:33
PROVIDERS: ATTEND Internal Medicine Hematology & Oncology
PROC: 3E033GC Introduction of Other Therapeutic Substance into Peripheral Vein, Percutaneous Approach (ICD-10-PCS; principal; 2018-01-12)
DX: D50.9 Iron deficiency anemia, unspecified (principal); K90.9 Intestinal malabsorption, unspecified
CPT/HCPCS: 96374; J7050; J1439; 96365

== ENCOUNTER 2019-12-27 03:26 | Emergency (ER) | payer MEDICAID, OTHER ==
[2019-12-27] MEDS ORDERED: NORMAL SALINE 1000 ML 1,000 ML IV ONE (04:45)
--- NOTE | 2019-12-27 04:47 | ER Document Report ---
ED Medical Screen (RME) - General Chief Complaint: Psych Problem Stated Complaint: POSSIBLE INTOXICATION Time Seen by Provider: 12/27/19 04:44 Notes: 39-year-old female with chief complaint of being extremely depressed, she states that she asked all of her family members for help tonight but they told her to go to bed. She states that she came here for help. She states she feels like no one is listening to her and there is no one there for her. She denies SI or HI however. She does admit to drinking alcohol tonight and states she is intoxicated. She denies recreational drugs. She is not on any mental health medications and states that she has not had an appropriate mental health evaluation. She denies any other complaints. TRAVEL OUTSIDE OF THE [place] IN LAST 30 DAYS: No - Related Data Allergies/Adverse Reactions: No Known Allergies Allergy (Verified 09/07/17 10:54) Past Medical History - Past Medical History Cardiac Medical History: Denies: Hx Coronary Artery Disease, Hx Heart Attack, Hx Hypertension Pulmonary Medical History: Denies: Hx Asthma, Hx Bronchitis, Hx COPD, Hx Pneumonia Neurological Medical History: Denies: Hx Cerebrovascular Accident, Hx Seizures Musculoskeltal Medical History: Denies Hx Arthritis Past Surgical History: Reports: Hx Abdominal Surgery - gastric bypass, Hx Section, Hx Gastric Bypass Surgery - Immunizations Hx Diphtheria, Pertussis, Tetanus Vaccination: No Physical Exam - Vital signs Vitals: Temp Pulse Resp BP Pulse Ox 97.9 F 84 18 137/67 H 98 12/27/19 03:39 12/27/19 03:39 12/27/19 03:39 12/27/19 03:39 12/27/19 03:39 - Psychological Associated symptoms: Tearful - Persistently crying during exam Course - Re-evaluation Re-evalutation: Patient is very tearful but otherwise well-appearing. She appears mildly intoxicated. She is not suicidal homicidal but is requesting mental health and help sobering up. I have greeted and performed a rapid initial assessment of this patient. A comprehensive ED assessment and evaluation of the patient, analysis of test results and completion of the medical decision making process will be conducted by additional ED providers. - Vital Signs Vital signs: Temp Pulse Resp BP Pulse Ox 97.9 F 84 18 137/67 H 98 12/27/19 03:39 12/27/19 03:39 12/27/19 03:39 12/27/19 03:39 12/27/19 03:39
[2019-12-27 06:05] LABS: ABSOLUTE EOSINOPHILS # (AUTO) 0.3 10^3/uL (0.0-0.6); ABSOLUTE LYMPHOCYTES (AUTO) 1.8 10^3/uL (0.5-4.7); ABSOLUTE MONOCYTES (AUTO) 0.3 10^3/uL (0.1-1.4); EOSINOPHILS % (AUTO) 7.9 % (0-6); HEMATOCRIT 28.2 % (36.0-47.0); HEMOGLOBIN 8.5 g/dL (12.0-15.5); LYMPHOCYTES % (AUTO) 52.6 % (13-45); MEAN CORPUSCULAR HEMOGLOBIN 19.3 pg (27.0-33.4); MEAN CORPUSCULAR HGB CONC 30.2 g/dL (32.0-36.0); MONOCYTES % (AUTO) 7.8 % (3-13); PLATELET COUNT 196 10^3/uL (150-450); RED BLOOD COUNT 4.41 10^6/uL (3.72-5.28); SEGMENTED NEUTROPHILS % (AUTO) 30.7 % (42-78); TOTAL CELLS COUNTED % (AUTO) 100 %; WHITE BLOOD COUNT 3.4 10^3/uL (4.0-10.5)
[2019-12-27 06:22] LABS: ALBUMIN 4.5 g/dL (3.5-5.0); ALCOHOL 210 mg/dL (NONE DETECTED); ALKALINE PHOSPHATASE 55 U/L (38-126); ANION GAP 8 (5-19); ASPARTATE AMINO TRANSFERASE 21 U/L (14-36); BILIRUBIN,TOTAL 0.2 mg/dL (0.2-1.3); BLOOD UREA NITROGEN 9 mg/dL (7-20); CALCIUM 8.6 mg/dL (8.4-10.2); CARBON DIOXIDE 24 mmol/L (22-30); CHLORIDE 111 mmol/L (98-107); GLUCOSE 110 mg/dL (75-110); POTASSIUM 4.1 mmol/L (3.6-5.0); TOTAL PROTEIN 7.4 g/dL (6.3-8.2)
[2019-12-27 06:24] LABS: ACETAMINOPHEN < 10 ug/mL (10-30); SALICYLATE < 1.0 mg/dL (2.0-20.0)
[2019-12-27 06:43] LABS: MEAN CORPUSCULAR VOLUME 64 fl (80-97)
[2019-12-27 06:45] LABS: ANISOCYTOSIS 2+; HYPOCHROMASIA 1+; OVALOCYTES 1+
[2019-12-27 06:46] LABS: PLATELET COMMENT ADEQUATE; POIKILOCYTOSIS 1+
[2019-12-27 08:39] LABS: APPEARANCE,URINE CLEAR; BILIRUBIN,URINE NEGATIVE (NEGATIVE); COLOR,URINE YELLOW; GLUCOSE, URINE NEGATIVE (NEGATIVE); KETONES,URINE NEGATIVE (NEGATIVE); LEUKOCYTE ESTERASE,URINE NEGATIVE (NEGATIVE); NITRITE,URINE NEGATIVE (NEGATIVE); PROTEIN,URINE NEGATIVE (NEGATIVE); URINE SPECIFIC GRAVITY 1.011; UROBILINOGEN,URINE NEGATIVE mg/dL (<2.0)
--- NOTE | 2019-12-27 08:45 | ER Document Report ---
ED General <ESTEE LOMELI - Last Filed: 12/27/19 12:14> - General TRAVEL OUTSIDE OF THE [place] IN LAST 30 DAYS: No <HALINA MCNAIR - Last Filed: 12/27/19 14:25> - General Chief Complaint: Psych Problem Stated Complaint: POSSIBLE INTOXICATION Time Seen by Provider: 12/27/19 04:44 Primary Care Provider: [facility] [Provider Group] - Follow up in 3-5 days Notes: Patient is a 39-year-old white female with no reported past medical history who presents to the emergency department with a chief complaint of wanting assistance for drinking and depression. The patient states that she is often used alcohol as a "crutch" to deal with her problems. She states she does not drink every day or even every week but only occasionally. She states when she does drink she "binge drinks". She states she often drinks to escape the pr oblems in her life. She states that she is asked her family for help several times and they tell her to "go to bed and sober up". Patient states last night she had enough and decided to call a cab and come here to try to get help her self. She states when she does drink she has about 2 of the 4 [place] drinks. Very rarely drinks rum. She states she initially feels good while drinking but then slips into a depression. She denies any thoughts of suicidal or homicidal ideations. No delusions or hallucinations. No other pain, complaints or concerns. (HALINA MCNAIR) - Related Data Allergies/Adverse Reactions: No Known Allergies Allergy (Verified 09/07/17 10:54) Past Medical History - Social History Smoking Status: Current Every Day Smoker Family History: Reviewed & Not Pertinent Patient has homicidal ideation: No - Past Medical History Cardiac Medical History: Denies: Hx Coronary Artery Disease, Hx Heart Attack, Hx Hypertension Pulmonary Medical History: Denies: Hx Asthma, Hx Bronchitis, Hx COPD, Hx Pneumonia Neurological Medical History: Denies: Hx Cerebrovascular Accident, Hx Seizures Musculoskeletal Medical History: Denies Hx Arthritis Past Surgical History: Reports: Hx Abdominal Surgery - gastric bypass, Hx Section, Hx Gastric Bypass Surgery - Immunizations Hx Diphtheria, Pertussis, Tetanus Vaccination: No <HALINA MCNAIR - Last Filed: 12/27/19 14:25> Review of Systems <HALINA MCNAIR - Last Filed: 12/27/19 14:25> - Review of Systems Notes: As per HPI (HALINA MCNAIR) Physical Exam - General General appearance: Appears well, Alert In distress: None - HEENT Head: Normocephalic, Atraumatic Eyes: Normal Conjunctiva: Normal Extraocular movements intact: Yes Eyelashes: Normal Pupils: PERRL Mucous membranes: Normal Pharynx: Normal Neck: Supple - Respiratory Respiratory status: No respiratory distress Chest status: Nontender Breath sounds: Normal Chest palpation: Normal - Cardiovascular Rhythm: Regular Heart sounds: Normal auscultation - Neurological Neuro grossly intact: Yes Cognition: Normal Orientation: AAOx4 - Psychological Associated symptoms: Normal affect, Normal mood - Skin Skin Temperature: Warm Skin Moisture: Dry Skin Color: Normal <HALINA MCNAIR - Last Filed: 12/27/19 14:25> - Vital signs Vitals: Temp Pulse Resp BP Pulse Ox 97.9 F 84 18 137/67 H 98 12/27/19 03:39 12/27/19 03:39 12/27/19 03:39 12/27/19 03:39 12/27/19 03:39 Course - Laboratory Result Diagrams: 12/27/19 05:44 12/27/19 05:44 <ESTEE LOMELI - Last Filed: 12/27/19 12:14> - Laboratory Result Diagrams: 12/27/19 05:44 12/27/19 05:44 <HALINA MCNAIR - Last Filed: 12/27/19 14:25> - Re-evaluation Re-evalutation: 12/27/19 14:24 Patient is been evaluated by psychiatry. The psych team has cleared her for discharge. She is medically cleared her alcohol has decreased to the 80s. She is clinically sober. She is stable and appropriate for discharge and outpatient follow-up. The patient is not driving she will be calling a ride. She was given resources for counseling and assistance. We discussed the importance of outpatient follow-up and advised she return here or any ER immediately with any new, persistent or worsening symptoms. She verbalized understood and agreed. (HALINA MCNAIR) - Vital Signs Vital signs: Temp Pulse Resp BP Pulse Ox 98.1 F 76 16 100/40 L 94 12/27/19 11:39 12/27/19 11:39 12/27/19 11:39 12/27/19 11:39 12/27/19 11:39 - Laboratory Laboratory results interpreted by me: 12/27/19 12/27/19 05:44 05:44 WBC 3.4 L Hgb 8.5 L Hct 28.2 L MCV 64 L MCH 19.3 L MCHC 30.2 L RDW 19.0 H Lymph % (Auto) 52.6 H Eos % (Auto) 7.9 H Absolute Neuts (auto) 1.0 L Seg Neutrophils % 30.7 L Chloride 111 H Salicylates < 1.0 L Acetaminophen < 10 L Discharge <ESTEE LOMELI - Last Filed: 12/27/19 12:14> <HALINA MCNAIR - Last Filed: 12/27/19 14:25> - Discharge Clinical Impression: Alcohol intoxication Qualifiers: Complication of substance-induced condition: uncomplicated Qualified Code(s): F10.920 - Alcohol use, unspecified with intoxication, uncomplicated Condition: Stable Disposition: HOME, SELF-CARE Additional Instructions: You have been evaluated by both medical and behavioral health teams and have been deemed appropriate for discharge. You are encouraged to engage in therapy that is goal orientated to build positive coping skills and what causes you to engage in self sabotaging behaviours. Therapy, such as [facility], can he lp you with this process. You have been provided a local resource list of area providers including mobile crisis contact information. ACUTE ALCOHOL INTOXICATION and ALCOHOL ABUSE: Your evaluation revealed very high levels of alcohol. You can from drinking a large amount of alcohol rapidly! Further, there's the risk of falls, traffic accidents, and fights. A high portion (about 50 percent) of the serious injuries seen in hospital emergency rooms are caused by alcohol. Alcohol overdosage is usually due to an underlying emotional or psychiatric problem. You may benefit from counselling. If "binge" drinking is an ongoing problem for you, or if you drink ANY AMOUNT of alcohol EVERY day, you most likely have a tendency to alcoholism. You should avoid alcohol totally. We can refer you for treatment. Persons with alcohol problems are often also prone to other addictions -- you should discuss any use of medications or drugs with the doctor. You should be watched at home for the next several hours by someone who has not been drinking. Get extra fluids for the next 24 hours. Call the doctor if there is repeated vomiting, increasing headache, decreasing level of alertness, or any other worsening. FOLLOW-UP CARE: If you have been referred to a physician for follow-up care, call the physicians office for an appointment as you were instructed or within the next two days. If you experience worsening or a significant change in your symptoms, notify the physician immediately or return to the Emergency Department at any time for re-evaluation. Referrals: [facility] [Provider Group] - Follow up in 3-5 days
--- NOTE | 2019-12-27 10:07 | EKG REPORT ---
SEVERITY:- ABNORMAL ECG - SINUS RHYTHM : Confirmed by: Aleta Lainez MD 27-Dec-2019 10:06:51
[2019-12-27 10:11] LABS: URINE AMPHETAMINES SCREEN NEGATIVE; URINE BARBITURATES SCREEN NEGATIVE; URINE BENZODIAZEPINES SCREEN NEGATIVE; URINE COCAINE SCREEN NEGATIVE; URINE MARIJUANA (THC) SCREEN NEGATIVE; URINE METHADONE SCREEN NEGATIVE; URINE PHENCYCLIDINE SCREEN NEGATIVE
--- NOTE | 2019-12-27 12:34 | PSYCHOLOGICAL NOTE ---
Psych Note - Psych Note Date seen by psych provider: 12/27/19 Time seen by psych provider: 10:55 Psych Note: Reason for consult: Alcohol intoxication Clinical presentation Alcohol intoxication Binge drinking Poor coping skills Family discord Impression\plan: Patient is cleared from acute psychiatric services. Dr. Contreras was consulted to care management of this patient; tending physicians in agreement with recommendations and disposition.
[2019-12-27 13:17] LABS: PATH REVIEW PATHOLOGIST REVIEWED
[2019-12-27 15:01] VITALS: BP 109/61
== END 2019-12-27 14:43 | disposition home or self-care (01) ==
LOC: ER 03:26
DX: F10.120 Alcohol abuse with intoxication, uncomplicated (principal); F17.200 Nicotine dependence, unspecified, uncomplicated
CPT/HCPCS: 36415; 80053; 80307; 81001; 84703; 85025; 93005; 93010; 99285